=== PATIENT | male | born 1940 | race Caucasian/White ===

== ENCOUNTER 2022-08-15 18:33 | Emergency (ER) | payer OTHER ==
[~2022-08-15] VITALS: Ht 190.5 cm; Wt 94.0 kg
[2022-08-15 18:35] VITALS: BP 184/88
[2022-08-15] MEDS ORDERED: CEPH-510 PO (20:18)
[2022-08-15] MEDS ORDERED: ACET-1158 PO (20:18)
[2022-08-15] MEDS ORDERED: LIDOCAINE 1% HCL (LOCAL ANESTH.) INJ 20ML MDV ID ONE (20:30)
[2022-08-15] MEDS ORDERED: TETANUS-DIPTH-ACEL PERTUSSIS 0.5ML SYR Tdap IM ONE (21:00)
== END 2022-08-15 21:44 | disposition home or self-care (01) ==
LOC: ER 18:33 → EDBD 18:33 → ER 21:44
DX: S01.01XA Laceration without foreign body of scalp, initial encounter (principal); Z79.899 Other long term (current) drug therapy; W01.198A Fall on same level from slipping, tripping and stumbling with subsequent striking against other object, initial encounter; Y93.89 Activity, other specified; Y92.89 Other specified places as the place of occurrence of the external cause; Y99.8 Other external cause status
CPT/HCPCS: 12002; 70450; 72125; 90471; 90715; 99284; J2001

== ENCOUNTER 2022-09-17 06:57 | Emergency (ER) | payer OTHER ==
[~2022-09-17] VITALS: Ht 190.5 cm; Wt 100.0 kg
[~2022-09-17 06:57] MED LIST: ACET-1158 PO; CEPH-510 PO
[2022-09-17 08:41] LABS: Basophils # (auto) 0 10 ^3/uL (0-0.2); Basophils % (auto) 0.4 % (0.0-2.0); Eosinophils # (auto) 0 10 ^3/uL (0-0.8); Eosinophils % (auto) 0.2 % (0.0-7.0); Hematocrit 45.2 % (41.0-53.0); Hemoglobin 14.9 g/dL (13.5-17.5); Lymphocytes % (auto) 13.9 % (10.0-50.0); Mean Corpuscular Hemoglobin 29.1 pg (28.0-32.0); Mean Corpuscular Volume 88.2 fL (80.0-100.0); Monocytes # (auto) 0.7 10 ^3/uL (0-1.3); Monocytes % (auto) 9.8 % (0.0-12.0); Neutrophils # (auto) 5.5 10 ^3/uL (1.6-8.6); Neutrophils % (auto) 75.7 % (37.0-80.0); Nucleated Red Blood Cells % 0.2 %; Red Blood Cells 5.12 10^6/uL (4.5-5.90); Red Cell Distribution Width 15.4 % (11.8-14.3); White Blood Cell 7.3 10^3/uL (4.4-10.8)
[2022-09-17 08:51] LABS: Albumin 3.9 g/dL (3.4-5.0); Calcium 8.8 mg/dL (8.5-10.1); Potassium 4.2 mmol/L (3.5-5.1)
[2022-09-17 08:55] LABS: BUN/Creatinine Ratio 20.4; Bilirubin, Total 0.6 mg/dL (0.2-1.0); Total Protein 6.9 g/dL (6.4-8.2)
[2022-09-17 09:12] LABS: INR 1.06 (0.9-1.15); Partial Thromboplastin Time 29.9 sec (24.6-33.4)
[2022-09-17] MEDS ORDERED: ASPirin 325 MG TAB PO ONE (10:00)
[2022-09-17 10:40] LABS: Urine Bacteria NONE SEEN /hpf (None Seen); Urine Blood TRACE /uL (Negative); Urine Specific Gravity 1.015 (1.001-1.035); Urine WBC <1 /hpf (0 - 3)
[2022-09-17] MEDS ORDERED: LIDOCAINE 1% HCL (LOCAL ANESTH.) INJ 20ML MDV ID ONE (11:15)
[2022-09-17 13:10] VITALS: BP 134/68
== END 2022-09-17 13:18 | disposition home or self-care (01) ==
LOC: EDBD 06:57 → ER 06:57
DX: S32.591A Other specified fracture of right pubis, initial encounter for closed fracture (principal); S01.81XA Laceration without foreign body of other part of head, initial encounter; I21.4 Non-ST elevation (NSTEMI) myocardial infarction; Z79.899 Other long term (current) drug therapy; Z20.822 Contact with and (suspected) exposure to COVID-19; W18.39XA Other fall on same level, initial encounter; Y93.89 Activity, other specified; Y92.89 Other specified places as the place of occurrence of the external cause; Y99.8 Other external cause status
CPT/HCPCS: 12013; 36415; 70450; 70486; 71045; 72125; 72192; 80053; 81001; 83880; 84484; 85025; 85610; 85730; 87426; 93005; 99285; J2001